=== PATIENT | male | born 1985 | race Two or more races ===

== ENCOUNTER 2017-07-12 10:25 | Emergency (ER) | payer SELFPAY ==
[~2017-07-12] VITALS: Ht 175.3 cm; Wt 83.9 kg
[2017-07-12 10:25] VITALS: BP 131/79
[2017-07-12] MEDS ORDERED: LIDOCAINE 2% 20 ML MDV ONE (11:05)
--- NOTE | 2017-07-12 11:50 | NUR ---
AMEE DAVILA BS FOR WOUND PROCEDURE.
== END 2017-07-12 12:59 | disposition home or self-care (01) ==
LOC: ER 10:28
DX: S61.411A Laceration without foreign body of right hand, initial encounter (principal); Z88.0 Allergy status to penicillin; W26.8XXA Contact with other sharp object(s), not elsewhere classified, initial encounter; Y93.89 Activity, other specified; Y92.89 Other specified places as the place of occurrence of the external cause; Y99.0 Civilian activity done for income or pay
CPT/HCPCS: A4606; A6402; A6403; J3490; Z7610

== ENCOUNTER 2017-07-23 10:27 | Emergency (ER) | payer SELFPAY ==
[~2017-07-23] VITALS: Ht 175.3 cm; Wt 79.4 kg
[2017-07-23 10:57] VITALS: BP 104/59
== END 2017-07-23 11:25 | disposition home or self-care (01) ==
LOC: ER 10:31
DX: S61.411D Laceration without foreign body of right hand, subsequent encounter (principal); F17.200 Nicotine dependence, unspecified, uncomplicated; Z88.0 Allergy status to penicillin; X58.XXXD Exposure to other specified factors, subsequent encounter
CPT/HCPCS: A4606; Z7502; Z7610